=== PATIENT | male | born 1950 | race Caucasian/White ===

== ENCOUNTER 2022-08-17 13:38 | Observation (INO) ==
--- NOTE | 2022-08-17 15:07 | DR.GENAD ---
HPI Time Seen Time Seen by Provider: 08/17/22 15:07 PCP Primary Care Physician: SUZANNE Arnett [employer] Complaint/Symptoms Chief Complaint:: PT HAD OPEN HEART AND AROTA REPLACED AT [facility] 08/08/22 PTS FAMILY STATES HE HAS BEEN HAVING TROUBLE SLEEPING AND MEMORY ISSUES , SHORT MEMORY AND CONFUSION , IN TRIAGE PT IS HAVING INTERMITTANT CONFUSION BR Self Treatment fo Chief Complaint: DR. [facility] COVID-19 Coronavirus risk:travel/contact w/high risk person: No Has patient experienced Coronavirus symptoms: No Nurses notes reviewed Nurses Notes Review: Yes Source History Provided: Patient and Family Member Mode of Arrival Mode of Arrival: Ambulatory Timing Onset of Chief Complaint: 08/08/22 PMH PMH Past Medical History: Yes Past Medical History: Diabetes and Hypertension Past Surgical History: Yes Surgical History: CABG/Valve Surgery Past Surgical History Comment: LEFT KNEE, DISC REPLACEMENT , AND DISC Family History History of Family Medical Conditions: No Social History Does patient currently use any type of tobacco product: No Have you used tobacco products in the last 12 months: No Type of Tobacco Use: None Does any household member use tobacco: No Alcohol Use: None Do you use any recreational Drugs:: No Lives With: Family Lives Where: Home Travel Risk Coronavirus risk:travel/contact w/high risk person: No Has patient experienced Coronavirus symptoms: No Infectious screening In the last 2 months have you had wt loss of >10#?: NO Have you had fever, night sweats or hemotysis?: No Have you traveled outside the country in the last 6 months?: No Isolation: Standard PE Vital Signs Vitals: Temperature 97 F Pulse Rate 94 Respiratory Rate 22 Blood Pressure 187/98 O2 Sat by Pulse Oximetry 95 ROR Labs Reviewed Result Diagrams: 08/17/22 15:19 08/17/22 15:19 Laboratory: WBC 10.1 X10^3/uL (3.6-10.0) H 08/17/22 15:19 RBC 3.81 X10^6/uL (4.7-6.0) L 08/17/22 15:19 Hgb 11.9 g/dL (13.5-18.0) L 08/17/22 15:19 Hct 33.8 % (42.0-54.0) L 08/17/22 15:19 MCV 88.7 fL (80.0-100.0) 08/17/22 15:19 MCH 31.2 pg (27.0-34.0) 08/17/22 15:19 MCHC 35.1 g/dL (33.0-35.0) H 08/17/22 15:19 RDW 12.9 % (11.6-16.5) 08/17/22 15:19 Plt Count 334 X10^3/uL (150.0-450.0) 08/17/22 15:19 MPV 6.4 fL (7.4-11.0) L 08/17/22 15:19 Neut % (Auto) 68.5 % (42.0-75.0) 08/17/22 15:19 Lymph % (Auto) 15.5 % (21.0-51.0) L 08/17/22 15:19 [place] % (Auto) 12.7 % (0.0-13.0) 08/17/22 15:19 Eos % (Auto) 2.6 % (0.9-2.9) 08/17/22 15:19 Baso % (Auto) 0.7 % (0.2-1.0) 08/17/22 15:19 Neut # (Auto) 6.9 x10^3/uL (2.2-4.8) H 08/17/22 15:19 Lymph # (Auto) 1.6 X10^3/uL (1.3-2.9) 08/17/22 15:19 [place] # (Auto) 1.3 x10^3/uL (0.3-0.8) H 08/17/22 15:19 Eos # (Auto) 0.3 x10^3/uL (0.0-0.2) H 08/17/22 15:19 Baso # (Auto) 0.1 X10^3/uL (0.0-0.1) 08/17/22 15:19 Absolute Nucleated RBC 0.0 /100WBC 08/17/22 15:19 Sodium 127 mmol/L (136-145) L 08/17/22 15:19 Corrected Sodium 128 mmol/L (136-145) L 08/17/22 15:19 Potassium 4.4 mmol/L (3.5-5.1) 08/17/22 15:19 Chloride 88 mmol/L (98-107) L 08/17/22 15:19 Carbon Dioxide 31.0 mmol/L (21-32) 08/17/22 15:19 BUN 20 mg/dL (7-18) H 08/17/22 15:19 Creatinine 0.94 mg/dL (0.70-1.30) 08/17/22 15:19 Est GFR (MDRD) Af Amer > 60 (>60) 08/17/22 15:19 Est GFR (MDRD) Non-Af > 60 (>60) 08/17/22 15:19 Glucose 157 mg/dL (65-99) H 08/17/22 15:19 Calcium 9.2 mg/dL (8.5-10.1) 08/17/22 15:19 Corrected Calcium TNP 08/17/22 15:19 Total Bilirubin 0.60 mg/dL (0.2-1.0) 08/17/22 15:19 AST 40 Units/L (15-37) H 08/17/22 15:19 ALT 83 Units/L (12-78) H 08/17/22 15:19 Alkaline Phosphatase 90 Units/L (46-116) 08/17/22 15:19 Creatine Kinase 221 Units/L (39-308) 08/17/22 15:19 Troponin I High Sens 18.0 ng/L (4.0-60.0) 08/17/22 15:19 Total Protein 7.1 g/dL (6.4-8.2) 08/17/22 15:19 Albumin 3.5 g/dL (3.4-5.0) 08/17/22 15:19 Globulin 3.6 g/dL (2.5-4.5) 08/17/22 15:19 Albumin/Globulin Ratio 1.0 Ratio (1.1-2.1) L 08/17/22 15:19 Specimen Type Clean catch urine 08/17/22 15:05 Urine Color Yellow (YELLOW) 08/17/22 15:05 Urine Appearance Clear (CLEAR) 08/17/22 15:05 Urine pH 7.0 (5.0 - 8.0) 08/17/22 15:05 Ur Specific [place] 1.015 (1.000-1.030) 08/17/22 15:05 Urine Protein Negative (NEGATIVE) 08/17/22 15:05 Urine Glucose (UA) Negative (NEGATIVE) 08/17/22 15:05 Urine Ketones 1+ (NEGATIVE) 08/17/22 15:05 Urine Blood Negative (NEGATIVE) 08/17/22 15:05 Urine Nitrite Negative (NEGATIVE) 08/17/22 15:05 Urine Bilirubin Negative (NEGATIVE) 08/17/22 15:05 Urine Urobilinogen Normal (NORMAL) 08/17/22 15:05 Ur Leukocyte Esterase Negative (NEGATIVE) 08/17/22 15:05 Opioid Opioid Risk Tool Age (Claudio box if 16-45): No History of Preadolescent Sexual Abuse: No Total: 0 Total Score Risk Category: Low Risk Copyright: Richard CASTRO predicting aberrant behaviors Discharge Plan Diagnosis Discharge Problem: Acute hyponatremia, Acute dehydration, Acute confusion, Hallucinations Discharge Plan Patient Disposition: 09 ADMITTED INPATIENT Condition: Stable Health Concerns: Post Hospitalization: new medications and changes needed to prevent readmission or further decline. Pt educated and given instructions on all concerns. Plan of Treatment: Continue with present treatment and follow up plan. Pt is to keep follow up appointment as instructed and take medications as ordered. Orders to Discharge Patient Discharge Orders: Transfer (Routine); Ordered 08/17/22 Ordered By: MOHAN CONNOR Follow ups/Referrals Follow ups/Referrals: VADIM PALACIOS [Primary Care Provider] - 3 days
[2022-08-17 15:17] LABS: BILIRUBIN,URINE NEGATIVE (NEGATIVE); BLOOD/HEMOGLOBIN,URINE NEGATIVE (NEGATIVE); GLUCOSE, URINE NEGATIVE (NEGATIVE); KETONES,URINE 1+ (NEGATIVE); LEUKOCYTE ESTERASE ,URINE NEGATIVE (NEGATIVE); NITRITES,URINE NEGATIVE (NEGATIVE); PROTEIN,URINE NEGATIVE (NEGATIVE); UROBILINOGEN,URINE NORMAL (NORMAL)
[2022-08-17 15:18] LABS: APPEARANCE,URINE CLEAR (CLEAR); COLOR,URINE YELLOW (YELLOW)
[2022-08-17 15:26] LABS: BASOPHILS # (AUTO) 0.1 X10^3/uL (0.0-0.1); BASOPHILS % (AUTO) 0.7 % (0.2-1.0); EOSINOPHILS # (AUTO) 0.3 x10^3/uL (0.0-0.2); EOSINOPHILS % (AUTO) 2.6 % (0.9-2.9); HEMATOCRIT 33.8 % (42.0-54.0); HEMOGLOBIN 11.9 g/dL (13.5-18.0); LYMPHOCYTES # (AUTO) 1.6 X10^3/uL (1.3-2.9); LYMPHOCYTES % (AUTO) 15.5 % (21.0-51.0); MEAN CORPUSCULAR HEMOGLOBIN 31.2 pg (27.0-34.0); MEAN CORPUSCULAR HGB CONC 35.1 g/dL (33.0-35.0); MEAN CORPUSCULAR VOLUME 88.7 fL (80.0-100.0); MEAN PLATELET VOLUME 6.4 fL (7.4-11.0); MONOCYTES # (AUTO) 1.3 x10^3/uL (0.3-0.8); MONOCYTES % (AUTO) 12.7 % (0.0-13.0); NEUTROPHILS # (AUTO) 6.9 x10^3/uL (2.2-4.8); NEUTROPHILS % (AUTO) 68.5 % (42.0-75.0); RED BLOOD COUNT 3.81 X10^6/uL (4.7-6.0); RED CELL DISTRIBUTION WIDTH 12.9 % (11.6-16.5); WHITE BLOOD COUNT 10.1 X10^3/uL (3.6-10.0)
[2022-08-17 15:41] LABS: ALANINE AMINOTRANSFERASE 83 Units/L (12-78); ALBUMIN 3.5 g/dL (3.4-5.0); ALKALINE PHOSPHATASE 90 Units/L (46-116); ASPARTATE AMINO TRANSFERASE 40 Units/L (15-37); BLOOD UREA NITROGEN 20 mg/dL (7-18); CALCIUM 9.2 mg/dL (8.5-10.1); CHLORIDE 88 mmol/L (98-107); COR NA(FOR HYPERGLY) 128 mmol/L (136-145); CREATINE KINASE 221 Units/L (39-308); CREATININE 0.94 mg/dL (0.70-1.30); SODIUM 127 mmol/L (136-145); TOTAL PROTEIN 7.1 g/dL (6.4-8.2); eGFR NON BLACK RACES > 60 (>60)
--- NOTE | 2022-08-17 16:03 | CT ---
HISTORYConfused and memory lossSTUDYBRAIN W/O CONCOMPARISONNone available.TECHNIQUEAxial non-contrast images of the head with coronal and sagittal reformats.Radiation dose: 864.84 mGy-cm total DLPFINDINGSNo abnormal areas of acute attenuation in the brain parenchyma.Green-white differentiation remains intact.No intracranial, extra-axial, fluid collection.No hemorrhage.No mass, mass effect or midline shift.No ventriculomegaly.No acute fracture.Sinuses are well aerated.Mastoid air cells are well aerated.Globes and intraorbital contents are unremarkable.IMPRESSIONNo acute intracranial abnormality identified.Electronically signed by: Vlad Narayan (Aug 17, 2022 16:01:40)
--- NOTE | 2022-08-17 21:54 | RAD ---
HISTORYConfused/memory loss. Open heart a few days ago HX: DIabetes/HTN.brSX: CABG/Aorta/Disc Replacement/Knee ReplacementSTUDYCHEST, 1 VIEWCOMPARISONFINDINGSThe trachea is midline. The cardiac silhouette is unremarkable. Elevation of the right hemidiaphragm suggesting right phrenic nerve paralysis with right base stranding suggestive of atelectasis. There is questionably a small right pleural effusion. The bony thorax is unremarkable.IMPRESSIONRight base atelectasis and questionable trace right effusion.Electronically signed by: James Jones (Aug 17, 2022 21:53:13)
[2022-08-17] MEDS: VISTARIL PO PRN (21:55)
[2022-08-17] MEDS: NS 1,000 ML IV 1,000 ML IV SCH (21:56)
[2022-08-17] MEDS: NYSTATIN POWDER TOP SCH (22:39)
[2022-08-17 23:04] VITALS: BMI 31.6
[2022-08-18] MEDS: NS 1,000 ML IV 1,000 ML IV SCH ×3 (06:00→22:26)
[2022-08-18 06:08] LABS: BASOPHILS # (AUTO) 0.1 X10^3/uL (0.0-0.1); BASOPHILS % (AUTO) 0.8 % (0.2-1.0); EOSINOPHILS # (AUTO) 0.4 x10^3/uL (0.0-0.2); EOSINOPHILS % (AUTO) 3.7 % (0.9-2.9); HEMATOCRIT 30.2 % (42.0-54.0); HEMOGLOBIN 10.8 g/dL (13.5-18.0); LYMPHOCYTES # (AUTO) 2.1 X10^3/uL (1.3-2.9); LYMPHOCYTES % (AUTO) 20.3 % (21.0-51.0); MEAN CORPUSCULAR HGB CONC 35.9 g/dL (33.0-35.0); MEAN CORPUSCULAR VOLUME 86.3 fL (80.0-100.0); MEAN PLATELET VOLUME 6.6 fL (7.4-11.0); MONOCYTES # (AUTO) 1.3 x10^3/uL (0.3-0.8); MONOCYTES % (AUTO) 12.3 % (0.0-13.0); NEUTROPHILS # (AUTO) 6.4 x10^3/uL (2.2-4.8); NEUTROPHILS % (AUTO) 62.9 % (42.0-75.0); RED BLOOD COUNT 3.49 X10^6/uL (4.7-6.0); RED CELL DISTRIBUTION WIDTH 13.1 % (11.6-16.5); WHITE BLOOD COUNT 10.2 X10^3/uL (3.6-10.0)
[2022-08-18 06:27] LABS: ALANINE AMINOTRANSFERASE 64 Units/L (12-78); ALBUMIN 2.9 g/dL (3.4-5.0); ALKALINE PHOSPHATASE 77 Units/L (46-116); ASPARTATE AMINO TRANSFERASE 28 Units/L (15-37); BLOOD UREA NITROGEN 19 mg/dL (7-18); CALCIUM 8.3 mg/dL (8.5-10.1); CARBON DIOXIDE 31.1 mmol/L (21-32); CHLORIDE 93 mmol/L (98-107); COR CA(FOR HYPOALB) 9.2 mg/dL (8.5-10.1); COR NA(FOR HYPERGLY) 130 mmol/L (136-145); CREATININE 0.88 mg/dL (0.70-1.30); MAGNESIUM 1.7 mg/dL (2.0-2.9); SODIUM 129 mmol/L (136-145); eGFR NON BLACK RACES > 60 (>60)
[2022-08-18] MEDS ORDERED: POTASSIUM CHL 60 MEQ/NS 0.45% 500 ML IV PRN (06:41)
[2022-08-18] MEDS ORDERED: MICRO K EXTEN CAP 10 MEQ PO PRN (06:41)
[2022-08-18] MEDS ORDERED: POTASSIUM CHL 40 MEQ/NS 0.45% 500 ML IV PRN (06:41)
[2022-08-18] MEDS ORDERED: POTASSIUM CHLORIDE LIQ 20 MEQ UDC PO PRN (06:41)
[2022-08-18] MEDS ORDERED: KLOR-CON PO PRN (06:41)
[2022-08-18] MEDS ORDERED: K-RIDER 10 MEQ/NS 100 ML 10 MEQ/100 ML BAG IV PRN (06:41)
[2022-08-18] MEDS ORDERED: K-DUR TAB 20 MEQ PO PRN (06:41)
[2022-08-18] MEDS: MAGNESIUM SULFATE 1 GRAM/100 mL PREMIX 1 G/100 ML BAG IV PRN ×2 (08:43→10:04)
[2022-08-18] MEDS: NYSTATIN POWDER TOP SCH ×2 (08:44→21:23)
[2022-08-18] MEDS ORDERED: DEPO-TESTOSTERONE IM ONE (11:31)
[2022-08-18] MEDS ORDERED: PATIENT'S HOME MEDICATION (Semaglutide [Ozempic] 1 mg/dose (4 mg/3 mL) pen injector) SUBCUT SCH (11:45)
[2022-08-18] MEDS ORDERED: TOPROL XL PO ONE (11:47)
[2022-08-18] MEDS: NEURONTIN CAP 300 MG PO SCH ×2 (12:12→20:44)
[2022-08-18] MEDS: TOPROL XL PO SCH (12:12)
[2022-08-18] MEDS: NORVASC TAB 5 MG PO SCH (12:12)
[2022-08-18] MEDS ORDERED: SODIUM CHL HYPERTONIC ** 3% ** 500 ML IV ONE (14:00)
[2022-08-18] MEDS: RHINOCORT ALLERGY NASAL SPRAY ENOSTRIL SCH (20:44)
[2022-08-18] MEDS ORDERED: PRAVACHOL PO SCH (21:00)
[2022-08-18] MEDS: VISTARIL PO PRN (21:23)
[2022-08-18] MEDS: TYLENOL 325 MG TAB PO PRN (23:45)
[2022-08-19] MEDS: TYLENOL 325 MG TAB PO PRN (03:56)
[2022-08-19] MEDS: VISTARIL PO PRN (05:24)
[2022-08-19 05:25] LABS: BASOPHILS # (AUTO) 0.1 X10^3/uL (0.0-0.1); EOSINOPHILS # (AUTO) 0.4 x10^3/uL (0.0-0.2); EOSINOPHILS % (AUTO) 3.1 % (0.9-2.9); HEMOGLOBIN 10.9 g/dL (13.5-18.0); LYMPHOCYTES # (AUTO) 1.9 X10^3/uL (1.3-2.9); LYMPHOCYTES % (AUTO) 16.9 % (21.0-51.0); MEAN CORPUSCULAR HEMOGLOBIN 30.9 pg (27.0-34.0); MEAN CORPUSCULAR HGB CONC 35.3 g/dL (33.0-35.0); MEAN CORPUSCULAR VOLUME 87.6 fL (80.0-100.0); MEAN PLATELET VOLUME 6.7 fL (7.4-11.0); MONOCYTES # (AUTO) 1.1 x10^3/uL (0.3-0.8); MONOCYTES % (AUTO) 9.8 % (0.0-13.0); NEUTROPHILS # (AUTO) 7.8 x10^3/uL (2.2-4.8); NEUTROPHILS % (AUTO) 69.2 % (42.0-75.0); RED BLOOD COUNT 3.53 X10^6/uL (4.7-6.0); RED CELL DISTRIBUTION WIDTH 13.1 % (11.6-16.5); WHITE BLOOD COUNT 11.3 X10^3/uL (3.6-10.0)
[2022-08-19 05:39] LABS: ALANINE AMINOTRANSFERASE 65 Units/L (12-78); ALBUMIN 2.9 g/dL (3.4-5.0); ALKALINE PHOSPHATASE 79 Units/L (46-116); ASPARTATE AMINO TRANSFERASE 29 Units/L (15-37); BLOOD UREA NITROGEN 20 mg/dL (7-18); CARBON DIOXIDE 30.1 mmol/L (21-32); CHLORIDE 94 mmol/L (98-107); COR CA(FOR HYPOALB) 8.9 mg/dL (8.5-10.1); COR NA(FOR HYPERGLY) 129 mmol/L (136-145); CREATININE 0.95 mg/dL (0.70-1.30); SODIUM 128 mmol/L (136-145); TOTAL PROTEIN 6.3 g/dL (6.4-8.2); eGFR NON BLACK RACES > 60 (>60)
[2022-08-19] MEDS ORDERED: LOVENOX INJ 40 MG SYR SC SCH (09:00)
[2022-08-19] MEDS ORDERED: TOPROL XL PO ONE (09:09)
[2022-08-19] MEDS: RHINOCORT ALLERGY NASAL SPRAY ENOSTRIL SCH (09:20)
[2022-08-19] MEDS: NYSTATIN POWDER TOP SCH (09:23)
[2022-08-19] MEDS: NEURONTIN CAP 300 MG PO SCH (09:24)
[2022-08-19] MEDS: TOPROL XL PO SCH (09:24)
[2022-08-19] MEDS: NORVASC TAB 5 MG PO SCH (09:24)
[2022-08-19] MEDS ORDERED: SODIUM CHL HYPERTONIC 3% IV ONE ×2 (11:00→15:00)
[2022-08-19] MEDS ORDERED: SODIUM CHL HYPERTONIC ** 3% ** 500 ML IV ONE ×2 (12:00→16:00)
[2022-08-19 18:01] VITALS: BP 139/69
[2022-08-20] MEDS ORDERED: PATIENT'S HOME MEDICATION (Semaglutide [Ozempic] 1 mg/dose (4 mg/3 mL) pen injector) SUBCUT SCH (09:00)
== END 2022-08-19 18:15 | disposition home health service (06) ==
LOC: ER 13:38 → MED/SURG 13:38
PROVIDERS: ADMIT Obstetrics & Gynecology Obstetrics; ATTEND Obstetrics & Gynecology Obstetrics
DX: R44.3 Hallucinations, unspecified; E87.1 Hypo-osmolality and hyponatremia; Z98.890 Other specified postprocedural states; E86.0 Dehydration